=== PATIENT | male | born 1965 | race Caucasian/White ===

== ENCOUNTER 2016-10-10 16:34 | Emergency (ER) | payer BC ==
[~2016-10-10] VITALS: Ht 177.8 cm; Wt 99.0 kg
[~2016-10-10 16:34] MED LIST: AVENTYL,PAMELOR10 MG PO; Inderal LA PO; LISINOPRIL10 MG PO; NEXIUM40 MG PO; Plavix PO; Protonix PO; Zestril,Prinivil PO
[2016-10-10 16:43] VITALS: BP 133/90
[2016-10-10] MEDS ORDERED: PERCOCET 5/31 TABLET PO (18:32)
[2016-10-10] MEDS ORDERED: INDOCIN50 MG PO (18:32)
[2016-10-10] MEDS ORDERED: ZOFRAN ODT4 MG PO (18:32)
== END 2016-10-10 18:49 | disposition home or self-care (01) ==
LOC: EME 16:34
DX: M10.9 Gout, unspecified (principal); I10 Essential (primary) hypertension; E78.5 Hyperlipidemia, unspecified; Z88.6 Allergy status to analgesic agent
CPT/HCPCS: 73610; 99281; 99284